=== PATIENT | female | born 1985 | race Caucasian/White ===

== ENCOUNTER 2017-06-27 12:56 | Emergency (ER) | payer MEDICAID ==
[~2017-06-27] VITALS: Ht 165.1 cm; Wt 58.1 kg
[~2017-06-27 12:56] MED LIST: CHLO15MO PO; CLON2TAB PO; LEVO750T6 PO; METH-356 PO; METH40TA3 PO; OXYC5TAB3 PO; PROM25TA10 PO; SULF1TAB24 PO; TRAM-47 PO; VALA500T4 PO; clotrimazole PV
[2017-06-27 13:00] VITALS: BP 122/75
[2017-06-27] MEDS ORDERED: SODIUM CHLORIDE FLUSH 10ML SYR IVF ONE (14:00)
[2017-06-27 14:05] LABS: HEMATOCRIT 38.3 % (34.6-47.8); WHITE BLOOD COUNT 4.7 x10^3/uL (3.4-10)
[2017-06-27 14:16] LABS: BLOOD UREA NITROGEN 18 mg/dL (7-18)
== END 2017-06-27 16:49 | disposition home or self-care (01) ==
LOC: ED 14:46
DX: R07.89 Other chest pain (principal); F43.10 Post-traumatic stress disorder, unspecified; G43.909 Migraine, unspecified, not intractable, without status migrainosus; Z90.49 Acquired absence of other specified parts of digestive tract
CPT/HCPCS: 36415; 74177; 80048; 82040; 84703; 85025; 99285

== ENCOUNTER 2017-11-28 14:24 | Emergency (ER) | payer MEDICAID ==
[~2017-11-28] VITALS: Ht 165.1 cm; Wt 56.0 kg
[2017-11-28 15:18] LABS: BASOPHILS # (AUTO) 0.02 x10^3/uL (0-0.1); BASOPHILS % (AUTO) 0 % (0-1); EOSINOPHILS # (AUTO) 0.02 x10^3/uL (0-0.4); EOSINOPHILS % (AUTO) 0 % (1-7); LYMPHOCYTES # (AUTO) 0.97 x10^3/uL (1-3.4); LYMPHOCYTES % (AUTO) 20 % (22-44); MD NO; MEAN CORPUSCULAR HEMOGLOBIN 29.4 pg (27.0-34.8); MEAN CORPUSCULAR HGB CONC 33.2 g/dL (32.4-35.8); MEAN CORPUSCULAR VOLUME 88.6 fL (80-100); MEAN PLATELET VOLUME 8.9 fL (7.4-10.4); MONOCYTES # (AUTO) 0.21 x10^3/uL (0.2-0.8); MONOCYTES % (AUTO) 4 % (2-9); NEUTROPHILS # (AUTO) 3.68 x10^3/uL (1.8-6.8); NEUTROPHILS % (AUTO) 75 % (42-75); PLATELET COUNT 246 x10^3/uL (130-400); RED BLOOD COUNT 4.66 x10^6/uL (3.82-5.3); RED CELL DISTRIBUTION WIDTH 15.1 % (9.6-15.2)
[2017-11-28 15:26] LABS: ALBUMIN 4.4 g/dL (3.4-5.0); ANION GAP 9 mmol/L (5-15); CHLORIDE 106 mmol/L (98-107); CREATININE 1.06 mg/dL (0.55-1.02)
[2017-11-28] MEDS ORDERED: LORazepam 1MG TABLET ONE (16:06)
[2017-11-28] MEDS ORDERED: LORazepam 1MG TABLET PO ONE (16:30)
[2017-11-28 17:36] LABS: FREE T4 (FREE THYROXINE) 1.19 ng/dL (0.76-1.46); THYROID STIMULATING HORMONE 0.356 mIU/L (0.358-3.740)
[2017-11-28 18:11] VITALS: BP 145/85
== END 2017-11-28 18:13 | disposition home or self-care (01) ==
LOC: ED 17:01
DX: M94.0 Chondrocostal junction syndrome [Tietze] (principal); R07.89 Other chest pain; G43.409 Hemiplegic migraine, not intractable, without status migrainosus; G35 Multiple sclerosis; Z90.49 Acquired absence of other specified parts of digestive tract; Z87.891 Personal history of nicotine dependence; F32.9 Major depressive disorder, single episode, unspecified; F41.1 Generalized anxiety disorder; F43.10 Post-traumatic stress disorder, unspecified
CPT/HCPCS: 36415; 71045; 80048; 82040; 84439; 84443; 85025; 93005; 99285

== ENCOUNTER → 2018-01-08 | Outpatient (CLI) | payer MEDICAID | END | disposition home or self-care (01) | LOC: CVU 07:03 | PROVIDERS: ATTEND Internal Medicine Cardiovascular Disease | DX: R07.89 Other chest pain (principal); Z87.891 Personal history of nicotine dependence | CPT/HCPCS: 93306 ==

== ENCOUNTER 2019-10-06 10:45 | Emergency (ER) | payer MEDICAID ==
[~2019-10-06] VITALS: Ht 165.1 cm; Wt 55.0 kg
[~2019-10-06 10:45] MED LIST changes: -METH-356 PO; +METH10TA2 PO
[2019-10-06] MEDS ORDERED: SODIUM CHLORIDE FLUSH 10ML SYR IVF ONE ×2 (11:30→12:00)
[2019-10-06 11:43] LABS: BASOPHILS # (AUTO) 0.01 x10^3/uL (0-0.1); BASOPHILS % (AUTO) 1 % (0-1); EOSINOPHILS # (AUTO) 0.03 x10^3/uL (0-0.4); EOSINOPHILS % (AUTO) 1 % (1-7); LYMPHOCYTES # (AUTO) 1.14 x10^3/uL (1-3.4); LYMPHOCYTES % (AUTO) 38 % (22-44); MD NO; MEAN CORPUSCULAR HEMOGLOBIN 30.4 pg (27.0-34.8); MEAN CORPUSCULAR HGB CONC 33.3 g/dL (32.4-35.8); MEAN CORPUSCULAR VOLUME 91.3 fL (80-100); MEAN PLATELET VOLUME 8.1 fL (7.4-10.4); MONOCYTES # (AUTO) 0.19 x10^3/uL (0.2-0.8); MONOCYTES % (AUTO) 6 % (2-9); NEUTROPHILS # (AUTO) 1.67 x10^3/uL (1.8-6.8); NEUTROPHILS % (AUTO) 55 % (42-75); PLATELET COUNT 244 x10^3/uL (130-400); RED BLOOD COUNT 4.49 x10^6/uL (3.82-5.3); RED CELL DISTRIBUTION WIDTH 13.5 % (9.6-15.2)
[2019-10-06 11:49] LABS: ALBUMIN 3.6 g/dL (3.4-5.0); ANION GAP 7 mmol/L (5-15); CALCIUM 8.5 mg/dL (8.5-10.1); CHLORIDE 108 mmol/L (98-107); CREATININE 0.91 mg/dL (0.55-1.02)
[2019-10-06] MEDS ORDERED: PROCHLORPERAZINE 5 MG/ML, 2ML ONE (11:58)
[2019-10-06] MEDS ORDERED: DIPHENHYDRAMINE 50 MG/ML, 1ML ONE (11:58)
[2019-10-06] MEDS ORDERED: KETOROLAC 60 MG/2 ML ONE (11:59)
[2019-10-06] MEDS ORDERED: KETOROLAC 30 MG/1 ML IVPush ONE (12:00)
[2019-10-06] MEDS ORDERED: PROCHLORPERAZINE 5 MG/ML, 2ML IVPush ONE (12:00)
[2019-10-06] MEDS ORDERED: SODIUM CHLORIDE 0.9% 1,000ML IVBOLUS ONE (12:00)
[2019-10-06] MEDS ORDERED: DIPHENHYDRAMINE 50 MG/ML, 1ML IVPush ONE (12:00)
[2019-10-06 12:45] VITALS: BP 120/75
[2019-10-06 13:11] LABS: MICROSCOPIC NOT IND
[2019-10-06 13:17] LABS: CULTURE INDICATED? NO
--- NOTE | 2019-10-06 13:26 | NUR ---
PT UP TO RESTROOM. AMBULATES WITH A STEADY GAIT.
== END 2019-10-06 14:06 | disposition home or self-care (01) ==
LOC: ED 12:24
DX: G44.219 Episodic tension-type headache, not intractable (principal); H93.19 Tinnitus, unspecified ear; M79.7 Fibromyalgia; G35 Multiple sclerosis; Z90.49 Acquired absence of other specified parts of digestive tract
CPT/HCPCS: 36415; 80048; 81003; 82040; 84703; 85025; 96374; 96375; 99283; J0780; J1200; J1885; J7030

== ENCOUNTER 2020-09-01 07:54 | Day surgery (SDC) | payer MEDICAID ==
[~2020-09-01] VITALS: Ht 165.1 cm; Wt 52.2 kg
[2020-09-01 08:45] VITALS: BP 194/68
[2020-09-01] MEDS ORDERED: ALPR1TAB6 PO (08:45)
[2020-09-01] MEDS ORDERED: ESZO2TAB22 PO (08:45)
[2020-09-01] MEDS ORDERED: OXYC15TA3 PO (08:45)
[2020-09-01] MEDS ORDERED: METH10TA2 PO (08:45)
[2020-09-01] MEDS ORDERED: BACL-19 PO (08:45)
[2020-09-01] MEDS ORDERED: GABA300C PO (08:45)
[2020-09-01] MEDS ORDERED: SODIUM CHLORIDE 0.9% 1,000 ML IV SCH (09:00)
[2020-09-01] MEDS ORDERED: OMNIPAQUE 300 MG/ML, 10ML VIAL ONE (09:00)
[2020-09-01] MEDS ORDERED: LIDOCAINE-MPF 1%, 5ML ONE (09:10)
[2020-09-01] MEDS ORDERED: ROPivacaine/PF 0.2%, 10 ML ONE (09:10)
== END 2020-09-01 13:40 | disposition home or self-care (01) ==
LOC: OUT 07:54 → EDSTATUS 09:00 → OUT 13:40
PROVIDERS: ATTEND Physician Assistant
DX: M48.04 Spinal stenosis, thoracic region (principal); M54.2 Cervicalgia; F17.210 Nicotine dependence, cigarettes, uncomplicated; Z88.5 Allergy status to narcotic agent; Z88.8 Allergy status to other drugs, medicaments and biological substances
CPT/HCPCS: 62284; 72126; 72129; J7030; Q9967; J2795